=== PATIENT | female | born 1980 | race Two or more races ===

== ENCOUNTER 2021-12-04 12:26 | Emergency (ER) | payer MEDICAID, OTHER ==
[~2021-12-04] VITALS: Ht 154.9 cm; Wt 84.0 kg
[2021-12-04] MEDS ORDERED: AMOX-277 PO (14:45)
[2021-12-04] MEDS ORDERED: IBUP800T27 PO (14:45)
[2021-12-04 14:47] VITALS: BP 107/71
== END 2021-12-04 15:10 | disposition home or self-care (01) ==
LOC: ER 12:26
DX: H66.91 Otitis media, unspecified, right ear (principal)